=== PATIENT | female | born 1945 | race Caucasian/White ===

== ENCOUNTER 2021-11-26 16:17 | Inpatient (IN) ==
[2021-11-26] MEDS ORDERED: ONDANSETRON 4 MG/2 ML VIAL IV STA (16:36)
[2021-11-26] MEDS ORDERED: KETOROLAC 30 MG/1 ML VIAL IV STA (16:36)
[2021-11-26] MEDS ORDERED: SODIUM CHLORIDE 0.9% 500 ML IV STA (16:36)
[2021-11-26] MEDS ORDERED: GLUCAGON 1 MG VIAL IM PRN (18:43)
[2021-11-26] MEDS ORDERED: DEXTROSE 10% 250 ML BAG IV PRN (18:45)
[2021-11-26 18:50] LABS: Basophils % 0.1 % (0.0-0.8); Hematocrit 33.4 VOL% (35.7-47.0); Hemoglobin 11.4 GM/DL (12.0-16.0); Immature Granulocytes % 0.6 %; Immature Granulocytes Absolute 0.08 #; Lymphocytes # 1.5 10*3/uL (1.4-4.0); Lymphocytes % 10.5 % (21.3-54.2); Mean Corpuscular HGB Conc 34.1 GM/DL (32-36); Mean Corpuscular Volume 96.5 FL (87-102); Monocytes % 9.5 % (1.7-12.7); Neutrophils % 79.3 % (38.7-73.9); Platelet Count 169 T/CUMM (130-400); Red Blood Count 3.46 MC/CUMM (3.8-5.5); Red Cell Distribution Width 12.2 % (9.3-17.3); White Blood Count 13.9 T/CUMM (4-12)
[2021-11-26 18:54] LABS: Albumin 3.4 G/DL (3.4-5.0); Bilirubin,Total 0.9 MG/DL (0.20-1.00); Calcium 8.7 MG/DL (8.5-10.1); Osmolality,Calculated 287.1 MOS/KG (273-304); Potassium 4.2 MMOL/L (3.5-5.1); Total Protein 6.1 G/DL (6.4-8.2)
[2021-11-26 19:03] LABS: PT Patient Result 11.1 SECS (10.5-12.0)
[2021-11-26 20:27] LABS: Bilirubin,Urine Negative (Negative); Blood, Urine Trace mg/dL (Negative); Glucose,Urine (UA) Negative (Negative); Ketones,Urine Trace mg/dL (Negative); Nitrite,Urine Positive (Negative); Protein,Urine Negative (Negative); Urine Appearance Slightly Cloudy (Clear); Urine Color Yellow (Yellow); Urine Specific Gravity 1.025 (1.001-1.035); Urine Urobilinogen 0.2 eU/dL (<2.0); Urine pH 6.5 (4.5-8.0)
[2021-11-26 20:29] LABS: Bacteria,Urine Occasional /HPF (Few); Mucus,Urine Occasional /LPF (Occasional); RBC,Urine 2 /HPF (0-4)
[2021-11-26] MEDS ORDERED: MORPHINE 2 MG/1 ML SYRINGE IV PRN (21:22)
[2021-11-26] MEDS: ATORVASTATIN 40 MG TABLET PO SCH (22:45)
[2021-11-26] MEDS: amLODIPine 5 MG TABLET PO SCH (22:45)
[2021-11-26] MEDS: ESCITALOPRAM 10 MG TABLET PO SCH (22:45)
[2021-11-27 04:45] LABS: Basophils # 0.1 10*3/uL (0.0-0.2); Basophils % 0.4 % (0.0-0.8); Eosinophils % 0.3 % (0.00-10.9); Hematocrit 32.6 VOL% (35.7-47.0); Immature Granulocytes % 0.3 %; Immature Granulocytes Absolute 0.04 #; Lymphocytes # 2.6 10*3/uL (1.4-4.0); Lymphocytes % 21.9 % (21.3-54.2); Mean Corpuscular HGB Conc 33.7 GM/DL (32-36); Mean Corpuscular Volume 97.9 FL (87-102); Mean Platelet Volume 11.1 FL (9.6-12.0); Monocytes % 12.2 % (1.7-12.7); Neutrophils % 64.9 % (38.7-73.9); Platelet Count 159 T/CUMM (130-400); Red Blood Count 3.33 MC/CUMM (3.8-5.5); Red Cell Distribution Width 12.3 % (9.3-17.3); White Blood Count 11.7 T/CUMM (4-12)
[2021-11-27 05:19] LABS: Calcium 8.8 MG/DL (8.5-10.1); Osmolality,Calculated 287.1 MOS/KG (273-304); Thyroid Stimulating Hormone 1.62 uIU/ml (0.358-3.74)
[2021-11-27] MEDS ORDERED: CLOPIDOGREL 75 MG TABLET PO SCH (09:00)
[2021-11-27] MEDS ORDERED: fentaNYL 100 MCG/2 ML VIAL ONE (10:25)
[2021-11-27] MEDS ORDERED: propofoL 200 MG/20 ML VIAL IV ONE (10:25)
[2021-11-27] MEDS ORDERED: ROCURONIUM 50 MG/5 ML VIAL IV ONE (10:25)
[2021-11-27] MEDS ORDERED: LIDOCAINE 2% 5 ML VIAL ONE (10:25)
[2021-11-27] MEDS ORDERED: SEVOFLURANE 1 UNIT/15 MINUTE INH ONE ×2 (10:25→12:20)
[2021-11-27] MEDS ORDERED: DEXAMETHASONE 4 MG/1 ML VIAL ONE ×2 (10:28→11:40)
[2021-11-27] MEDS ORDERED: BUPIVACAINE MPF 0.25% 30 ML VIAL ONE (10:28)
[2021-11-27] MEDS ORDERED: LACTATED RINGERS 1,000 ML IV SCH (11:00)
[2021-11-27] MEDS ORDERED: MORPHINE 2 MG/1 ML SYRINGE IV PRN ×2 (11:39)
[2021-11-27] MEDS ORDERED: diphenhydrAMINE CAP 25 MG CAPSULE PO PRN (11:39)
[2021-11-27] MEDS ORDERED: MAGNESIUM HYDROXIDE SUSP 30 ML UDCUP PO PRN (11:39)
[2021-11-27] MEDS ORDERED: PHENYLEPHRINE 1 MG/10 ML SYRINGE IV ONE ×2 (11:40→12:01)
[2021-11-27] MEDS ORDERED: ONDANSETRON 4 MG/2 ML VIAL ONE (11:40)
[2021-11-27] MEDS ORDERED: GLYCOPYRROLATE 0.4 MG/2 ML VIAL ONE (12:01)
[2021-11-27] MEDS ORDERED: NEOSTIGMINE 10 MG/10 ML VIAL ONE (12:02)
[2021-11-27] MEDS ORDERED: LACTATED RINGERS 1,000 ML IV ONE (12:18)
[2021-11-27] MEDS ORDERED: BACITRACIN OINT 0.9 GM PACK TOP ONE (12:45)
[2021-11-27] MEDS: DOCUSATE SODIUM 100 MG CAPSULE PO SCH (22:00)
[2021-11-27] MEDS: ATORVASTATIN 40 MG TABLET PO SCH (22:00)
[2021-11-27] MEDS: LACTATED RINGERS 1,000 ML IV SCH (22:01)
[2021-11-27] MEDS: ESCITALOPRAM 10 MG TABLET PO SCH (22:01)
[2021-11-27] MEDS: amLODIPine 5 MG TABLET PO SCH (22:01)
[2021-11-28 04:42] LABS: Basophils % 0.1 % (0.0-0.8); Hematocrit 27.1 VOL% (35.7-47.0); Hemoglobin 9.2 GM/DL (12.0-16.0); Immature Granulocytes % 0.6 %; Immature Granulocytes Absolute 0.08 #; Lymphocytes # 1.2 10*3/uL (1.4-4.0); Lymphocytes % 9.3 % (21.3-54.2); Mean Corpuscular HGB Conc 33.9 GM/DL (32-36); Mean Corpuscular Volume 96.4 FL (87-102); Mean Platelet Volume 11.2 FL (9.6-12.0); Monocytes % 4.6 % (1.7-12.7); Neutrophils % 85.4 % (38.7-73.9); Platelet Count 140 T/CUMM (130-400); Red Blood Count 2.81 MC/CUMM (3.8-5.5); Red Cell Distribution Width 11.2 % (9.3-17.3); White Blood Count 12.5 T/CUMM (4-12)
[2021-11-28 04:54] LABS: Calcium 8.3 MG/DL (8.5-10.1); Osmolality,Calculated 280.5 MOS/KG (273-304); Potassium 4.7 MMOL/L (3.5-5.1)
[2021-11-28] MEDS: LACTATED RINGERS 1,000 ML IV SCH (04:56)
[2021-11-28 05:20] LABS: Lymphocytes 14 % (20-55); Platelet Estimate Adequate; Segmented Neutrophils 85 % (50-85); Total Cells Counted 100
[2021-11-28 05:21] LABS: Hypochromia Slight; Microcytosis Slight
[2021-11-28] MEDS: CLOPIDOGREL 75 MG TABLET PO SCH (08:22)
[2021-11-28] MEDS: DOCUSATE SODIUM 100 MG CAPSULE PO SCH ×2 (08:22→20:58)
[2021-11-28] MEDS: ONDANSETRON 4 MG/2 ML VIAL IV PRN ×2 (12:13→17:42)
[2021-11-28] MEDS ORDERED: PROMETHAZINE INJ 6.25 MG in SODIUM CHLORIDE 0.9% 50 ML IV ONE (18:20)
[2021-11-28] MEDS: ESCITALOPRAM 10 MG TABLET PO SCH (20:58)
[2021-11-28] MEDS: ATORVASTATIN 40 MG TABLET PO SCH (20:58)
[2021-11-28] MEDS: amLODIPine 5 MG TABLET PO SCH (20:58)
[2021-11-29 04:07] LABS: Basophils % 0.3 % (0.0-0.8); Eosinophils % 0.1 % (0.00-10.9); Hematocrit 28.2 VOL% (35.7-47.0); Hemoglobin 9.5 GM/DL (12.0-16.0); Immature Granulocytes % 0.5 %; Immature Granulocytes Absolute 0.06 #; Lymphocytes # 3.5 10*3/uL (1.4-4.0); Lymphocytes % 31.3 % (21.3-54.2); Mean Corpuscular HGB Conc 33.7 GM/DL (32-36); Mean Corpuscular Volume 95.9 FL (87-102); Mean Platelet Volume 10.6 FL (9.6-12.0); Monocytes % 10.3 % (1.7-12.7); Neutrophils % 57.5 % (38.7-73.9); Platelet Count 155 T/CUMM (130-400); Red Blood Count 2.94 MC/CUMM (3.8-5.5); Red Cell Distribution Width 11.7 % (9.3-17.3); White Blood Count 11.1 T/CUMM (4-12)
[2021-11-29] MEDS: DOCUSATE SODIUM 100 MG CAPSULE PO SCH (08:28)
[2021-11-29] MEDS: CLOPIDOGREL 75 MG TABLET PO SCH (08:28)
[2021-11-29] MEDS: ONDANSETRON 4 MG/2 ML VIAL IV PRN (10:06)
[2021-11-29 12:38] VITALS: BP 133/56
== END 2021-11-29 14:47 | DRG 482 ==
LOC: EDBD → EDUNIT# → N.ED 16:17 → N.3E 18:43
PROVIDERS: ADMIT Internal Medicine Geriatric Medicine; ATTEND Internal Medicine Geriatric Medicine